=== PATIENT | male | born 2000 | race Caucasian/White ===

== ENCOUNTER 2020-03-18 11:01 | Outpatient (REF) | payer BC, SELFPAY ==
[2020-03-18 18:07] LABS: HCT 45.8 % (40.0-50.0); HGB 15.6 g/dL (13.5-17.5); Mean Corp. HGB Concentration 34.1 g/dL (32.0-36.0); Mean Corpuscular Hemoglobin 30.4 pg (27.0-33.0); Mean Corpuscular Volume 89.3 fL (80-95); Mean Platelet Volume 11.1 fL (8.0-11.0); Platelet Count 251 x1000/uL (130-400); RBC 5.13 m/cumm (4.50-6.00); RBC Distribution Width 12.7 % (11.8-14.1); White Blood Cell Count 5.71 k/cumm (4.4-10.8)
[2020-03-18 18:33] LABS: ALT 26 U/L (16-63); AST 17 U/L (15-37); Albumin 4.4 g/dL (3.4-5.0); Alkaline Phosphatase 68 U/L (46-116); BUN 13 mg/dL (7-18); Bilirubin, Total 0.5 mg/dL (0.2-1.0); C-Reactive Protein 0.11 mg/dL (0.0-0.3); CREATININE 0.97 mg/dL (0.70-1.30); Calcium 9.5 mg/dL (8.5-10.1); Chloride 102 mmol/L (98-107); Glucose 94 mg/dL (74-106); Potassium 4.1 mmol/L (3.5-5.1); Sodium 140 mmol/L (136-145); Total Protein 7.6 g/dL (6.4-8.2)
[2020-03-18 19:15] LABS: ESR 3 mm/hr (0-15)
== END 2020-03-18 11:21 ==
LOC: NCHCN 11:01
PROVIDERS: PCP Physician Assistant; Visit Provider Physician Assistant
DX: R19.7 Diarrhea, unspecified (principal)
CPT/HCPCS: 80053; 85027; 85652; 86140

== ENCOUNTER 2023-01-23 22:28 | Outpatient (REF) | payer BC, SELFPAY ==
[2023-01-25 14:44] LABS: GC Result Negative (Negative)
[2023-01-25 14:49] LABS: Chlamydia Result Positive (Negative)
== END 2023-01-23 22:29 | disposition home or self-care (01) ==
LOC: LBN 22:28
PROVIDERS: PCP Physician Assistant; Visit Provider Physician Assistant Medical
DX: Z11.3 Encounter for screening for infections with a predominantly sexual mode of transmission (principal)
CPT/HCPCS: 87491; 87591